=== PATIENT | male | born 1985 | race Caucasian/White ===

== ENCOUNTER 2020-07-05 06:34 | Emergency (ER) | payer BC, OTHER ==
[~2020-07-05] VITALS: Ht 177.8 cm; Wt 97.5 kg
[2020-07-05 06:41] VITALS: BP 130/88
--- NOTE | 2020-07-05 06:55 | NUR ---
ED Nurse Note: Pt c/o red, itchy, bumps to hands and abdomen. Unknown cause. Pt ambulated into ED and is AAO x4.
[2020-07-05] MEDS ORDERED: DOXYCYCLINE MO100 MG ORAL (06:58)
[2020-07-05] MEDS ORDERED: DIPHENHYDRAMINE25 M1 ORAL (06:58)
[2020-07-05 06:59] VITALS: BP 130/88
--- NOTE | 2020-07-05 07:02 | NUR ---
ER DISCHARGE NOTE: Patient is cleared to be discharged per ER MD, pt is aao x4, on room air, with stable vital signs. pt was given d/c and prescription instructions, pt was able to verbalize understanding, pt id band removed. pt is able to ambulate with steady gait. pt took all belongings.
--- NOTE | 2020-07-05 11:12 | Emergency Room Report ---
History of Present Illness General Chief Complaint: Skin Rash/Abscess Source: Patient Present Illness HPI 34-year-old male presents for evaluation. Complains of a rash x1 day. States that he notices it on his arms on his groin area, to his palms. States is very itchy. Denies pain. Denies any known food or drug allergies. Denies any contact exposures. No other aggravating relieving factors. Denies any other associated symptoms Allergies: Coded Allergies: No Known Allergies (Unverified , 07/05/20) COVID-19 Screening Contact w/high risk pt: No Experienced COVID-19 symptoms?: No COVID-19 Testing performed CLOSING SPECIALIST: No Patient History Past Medical History: none Past Surgical History: none Pertinent Family History: none Social History: Denies: smoking, alcohol use, drug use Immunizations: UTD Reviewed Nursing Documentation: PMH: Agreed; PSxH: Agreed Nursing Documentation-PMH Past Medical History: No Stated History Review of Systems All Other Systems: negative except mentioned in HPI Physical Exam Vital Signs Date Time Temp Pulse Resp B/P (MAP) Pulse Ox O2 Delivery O2 Flow Rate FiO2 07/05/20 06:41 98.8 100 18 130/88 (102) 97 Room Air Sp02 EP Interpretation: reviewed, normal General Appearance: no apparent distress, alert, GCS 15, non-toxic Head: normocephalic, atraumatic Eyes: bilateral eye normal inspection, bilateral eye PERRL ENT: hearing grossly normal, normal pharynx, no angioedema, normal voice Neck: full range of motion, supple/symm/no masses Respiratory: chest non-tender, lungs clear, normal breath sounds, speaking full sentences Cardiovascular #1: regular rate, rhythm, no edema Cardiovascular #2: 2+ carotid (R), 2+ carotid (L), 2+ radial (R), 2+ radial (L), 2+ dorsalis pedis (R), 2+ dorsalis pedis (L) Gastrointestinal: normal bowel sounds, non tender, soft, non-distended, no guarding, no rebound Rectal: deferred Genitourinary: normal inspection, no CVA tenderness Musculoskeletal: back normal, normal range of motion, gait/station normal, non- tender Neurologic: alert, motor strength/tone normal, oriented x3, sensory intact, responsive, speech normal Psychiatric: judgement/insight normal, memory normal, mood/affect normal, no suicidal/homicidal ideation Reflexes: 3+ bicep (R), 3+ bicep (L), 3+ tricep (R), 3+ tricep (L), 3+ knee (R), 3+ knee (L) Skin: rash - Papular rash noted to palms, axilla, groin, nonerythematous base Lymphatic: no adenopathy Medical Decision Making Diagnostic Impression: Primary Impression: Rash and other nonspecific skin eruption ER Course Hospital Course 34-year-old male presents to ED with rash Differential diagnoses include: Cellulitis, dermatitis, insect bite, abscess Clinical course Patient placed on stretcher. After initial history, physical exam reveals a male in no acute distress. On exam there is a diffuse papular rash noted extensively to the groin area, to the hands and 2 other satellite spots Patient afebrile, nontoxic-appearing. Discussed findings with patient. Consideration for syphilis patient denies any history suggestive of nickie syphilis. Declines penicillin injection. States he will follow-up for testing. We will discharge with doxycycline and Benadryl. Safe for discharge with close outpatient follow-up. I will provide referrals Diagnosis - rash stable and discharged to home with prescription for Doxycycline, benedryl. Instructed to followup with PMD. Instructed return to ED if symptoms recur or worsen Last Vital Signs Date Time Temp Pulse Resp B/P (MAP) Pulse Ox O2 Delivery O2 Flow Rate FiO2 07/05/20 07:02 83 07/05/20 06:59 98.8 18 130/88 97 Room Air Status: improved Disposition: HOME, SELF-CARE Condition: Stable Scripts Diphenhydramine Hcl* (DIPHENHYDRAMINE HCL*) 25 Mg Capsule 25 MG ORAL Q6H PRN for Itching for 5 Days, #30 CAP 0 Refills Prov: Hussain Nagy MD 07/05/20 Doxycycline Monohydrate* (DOXYCYCLINE MONOHYDRATE*) 100 Mg Capsule 100 MG ORAL Q12H, #14 CAP 0 Refills Prov: Hussain Nagy MD 07/05/20 Referrals: [facility],REFERR[facility] (PCP) Caryl Rivera [facility]. [facility] Patient Instructions: Hussain Allen MD Jul 05, 2020 11:12
== END 2020-07-05 07:06 | disposition home or self-care (01) ==
LOC: EMR 07:02
DX: R21 Rash and other nonspecific skin eruption (principal)
CPT/HCPCS: 99282